=== PATIENT | male | born 1970 | race Hispanic/Latino ===

== ENCOUNTER 2024-04-30 09:04 | Observation (INO) | payer BC, OTHER ==
[2024-04-30] MEDS ORDERED: Ondansetron PF 4 MG/2 ML Vial ONE ×2 (09:33→17:38)
[2024-04-30] MEDS ORDERED: Morphine 4 MG/ML VIAL ONE (09:33)
[2024-04-30] MEDS ORDERED: Famotidine/PF 20 mg/2ml Vial ONE (09:34)
[2024-04-30 09:46] LABS: #Basophils 0.04 10x3/uL (0.0-0.2); #Eosinphils 0.03 10x3/uL (0.0-0.5); #Monocytes 0.75 10x3/uL (0.0-1.1); #Neutrophils 10.43 10x3/uL (1.5-8.4); %Basophils 0.3 % (0.0-2.0); %Eosinophils 0.2 % (0.0-6.0); %Lymphocytes 10.1 % (18.0-47.0); Hematocrit 43.5 % (38.8-50.0); Hemoglobin 16.1 g/dL (13.5-17.5); Mean Corpuscular Hemoglobin 31.6 pg (27.0-33.0); Mean Corpuscular Volume 85.5 fL (81.2-95.1); Platelet Count 184 10x3/uL (150-450); RBC Distribution Width 11.4 % (11.5-14.5); Red Blood Cell (RBC) Count 5.09 10x6/uL (4.32-5.72); White Blood Cell (WBC) Count 12.6 10x3/uL (3.5-10.5)
[2024-04-30 09:59] LABS: ALT (SGPT) 233 U/L (8-55); AST (SGOT) 364 U/L (5-34); Albumin 4.1 g/dL (3.5-5.0); Alkaline Phosphatase 99 U/L (40-110); Anion Gap 15 mmol/L (10-20); BUN (Urea Nitrogen) 14 mg/dL (8.4-25.7); Calc. Creatinine Clearance 0 mL/min (70-130); Calcium 9.5 mg/dL (7.8-10.44); Carbon Dioxide 22 mmol/L (22-29); Chloride 103 mmol/L (98-107); Estimated GFR 93; Globulin 3.1 g/dL (2.4-3.5); Glucose 228 mg/dL (70-105); Lipase 24 U/L (8-78); Potassium 3.8 mmol/L (3.5-5.1); Protein, Total 7.2 g/dL (6.0-8.3); Sodium 136 mmol/L (136-145)
[2024-04-30] MEDS ORDERED: Piperacillin/Tazobactam 3.375 GM VIAL ONE (14:59)
[2024-04-30] MEDS ORDERED: Glucagon 1 MG/ML KIT ONE (15:09)
[2024-04-30] MEDS ORDERED: Bupivacaine 0.25% HCL 30 ML VIAL ONE (15:09)
[2024-04-30] MEDS ORDERED: EPINEPHrine 1 MG/ML VIAL ONE (15:09)
[2024-04-30] MEDS ORDERED: Iopamidol 15 ML ONE (15:09)
[2024-04-30] MEDS ORDERED: fentaNYL 50 mcg/mL 1 mL Vial ONE ×5 (15:48→19:22)
[2024-04-30] MEDS ORDERED: Rocuronium Bromide 10 MG/ML (10ML VIAL) ONE (15:48)
[2024-04-30] MEDS ORDERED: PROPOFOL 20 ML ONE ×2 (15:48→17:55)
[2024-04-30] MEDS ORDERED: Lidocaine 2% PF 5 ML VIAL ONE (15:48)
[2024-04-30] MEDS ORDERED: Calcium Carbonate 500 MG ChewTAB PO PRN (17:00)
[2024-04-30] MEDS ORDERED: Dextrose 5% in Water 1,000 ML IV PRN (17:00)
[2024-04-30] MEDS ORDERED: hydrALAZINE 20 MG/ML VIAL SLOW IVP PRN (17:00)
[2024-04-30] MEDS ORDERED: Dextrose 50% Abboject 50 ML SYRINGE SLOW IVP PRN (17:00)
[2024-04-30] MEDS ORDERED: Ipratropium/Albuterol 3 ML NEB NEB PRN (17:00)
[2024-04-30] MEDS ORDERED: Mag-Al 1200 mg/1200 mg/30 ML UDCUP PO PRN (17:00)
[2024-04-30] MEDS ORDERED: Glucagon 1 MG/ML KIT IM PRN (17:00)
[2024-04-30] MEDS ORDERED: Promethazine HCl 25 MG/ML VIAL IM PRN (17:00)
[2024-04-30] MEDS ORDERED: Dexamethasone 4 mg/ml Vial ONE (17:38)
[2024-04-30] MEDS ORDERED: ePHEDrine Sulfate 50 MG/10 ML VIAL ONE (17:50)
[2024-04-30] MEDS ORDERED: Sevoflurane 250 ML INH ANEST BOTTLE ONE (17:58)
[2024-04-30] MEDS ORDERED: Glycopyrrolate 0.2 MG/ML 5 ML SYRINGE ONE (18:17)
[2024-04-30] MEDS ORDERED: Ketorolac Tromethamine 30 MG (1 mL) VIAL ONE (19:13)
[2024-04-30 19:53] VITALS: BMI 28.5
[2024-04-30] MEDS: Morphine 2 MG/ML VIAL SLOW IVP PRN (20:22)
[2024-04-30] MEDS: D5 1/2 NS w/20 mEq KCL 1,000 ML IV SCH ×2 (20:25→23:42)
[2024-04-30] MEDS: Ketorolac Tromethamine 30 MG (1 mL) VIAL IVP SCH (20:39)
[2024-04-30] MEDS: Famotidine 20 MG TAB PO SCH (21:35)
[2024-05-01] MEDS: Ondansetron PF 4 MG/2 ML Vial IVP PRN (03:03)
[2024-05-01] MEDS: HYDROcodone/Acetaminophen 10/325 mg Tablet PO PRN (08:04)
[2024-05-01] MEDS ORDERED: Sodium Chloride 0.9% 1,000 ML IV SCH (09:00)
[2024-05-01 12:32] VITALS: BP 131/63; TEMP 98.4
== END 2024-05-01 15:56 | disposition home or self-care (01) ==
LOC: CSHERS 09:04 → CSHTELE 14:31
PROVIDERS: ADMIT Surgery; ATTEND Surgery
PROC: 0FT44ZZ Resection of Gallbladder, Percutaneous Endoscopic Approach (ICD-10-PCS; principal; 2024-04-30)
PROC: BF11YZZ Fluoroscopy of Biliary and Pancreatic Ducts using Other Contrast (ICD-10-PCS; 2024-04-30)
DX: K80.12 Calculus of gallbladder with acute and chronic cholecystitis without obstruction (principal); E66.01 Morbid (severe) obesity due to excess calories; G47.33 Obstructive sleep apnea (adult) (pediatric); G62.9 Polyneuropathy, unspecified; Z98.84 Bariatric surgery status; Z98.890 Other specified postprocedural states; Z68.28 Body mass index [BMI] 28.0-28.9, adult; Z79.899 Other long term (current) drug therapy
CPT/HCPCS: 47532; 74177; 76705; 80053; 83690; 85025; 88304; 93005; 93010; 94760; 96374; 96375; C1889; G0378; J0171; J0665; J1100; J1611; J1885; J2001; J2270; J2272; J2405; J2543; J2704; J3010; J3480; Q9967; S0028